=== PATIENT | male | born 1985 ===

== ENCOUNTER 2024-10-12 15:10 | Inpatient (IN) | payer MEDICAID, SELFPAY ==
[2024-10-12 15:30] VITALS: BP 128/78; PULSE 84; RESP 18; TEMP 36.9; O2SAT 99
[2024-10-12 16:01] VITALS: BMI 24.7
--- NOTE | 2024-10-12 16:01 | HO.PSYADMNOT ---
HPI Date of Service: 10/12/24 Chief Complaint: F25.0 Sources of Information: patient interviewed, chart reviewed and crisis/core team assessment reviewed HPI Subjective Notes: [place] Warning and Conditional Voluntary Healthcare Proxy: No Guardianship: No Medical Problems Affecting Mental Status: No Narrative: Per referral from [facility], patient is a 39 years old male with history of schizoaffective disorder, bipolar disorder presenting with a concerns for infection of a new tattoo. Patient was agitated, verbally aggressive with staff as well as physically aggressive staff requests restraints. Of Benadryl Haldol and Ativan was given. Patient reported that he has had increased paranoia and anxiety, disclose suicidal ideation but did not specify a plan I do not know do it but I will do it, difficult time finishing sentences, talking rapidly about numerous things. Met with patient at 16:10 on October 12. CC suicidal thoughts . Reports everything is spiral up. Reported that he only slept for 20 hours total in last 30 days, increased agitation. He just moved from [place] with plan to to go to [place] as he has couple of friends there. However he has not make it yet to [place]. He was thought by [place] to have his tattoo done from a famous placed in [place] that he knows. Traveled by bus. The tattoo area does not seems having infection signs. Denies SI/SIB/HI/AVH. History of suicidal thoughts. History of cutting last cut was in 2017. Denies suicide attempts history. Mood is I am stable now. I am at baseline . Denies any trauma history. He confirms that he have bipolar. Past Psychiatric History: History of inpatient level of care since 16 years old, on the average he admitted to [facility] once a year. Last admission was in December 2023 but do not remember for what reason or where he was admitted Currently has no psychiatric or therapist or PCP. No history of PHP. History of detox x2 not sure when he was admitted to detox. Medication trials: Depakote, Tegretol, Abilify, Geodon, defend benzos, BuSpar. Medical Evaluation Reviewed: Hospitalist Jt Pending [facility] Narrative: Childhood asthma Narrative: Denies surgical history Family History: Mom and dad still alive. No mental health runs in the family. Dad has history of abuse to benzo. He has 2 younger brothers. Social History: He is single, never , has no children. Lives in [place], recently wanted to move to [place]. He take the 1st from [place], stopped by [place] to get a tattoo done days ago. He has 2 years college. Currently receives SSI. He has money to pay for the hotel. Substance History: He used to abuse 2 amphetamine, cocaine, fentanyl but not currently, last use was 4 months ago. Denies marijuana use. He smoked 1.5 packs a day of cigarettes. Denies alcohol issues Trauma History: Denies Meds/Allergies Allergies Allergies Allergy/AdvReac Type Severity Reaction Status Date / Time bacitracin (From Neosporin Allergy Hives Verified 10/12/24 15:56 ([id number])) latex Allergy Hives Verified 10/12/24 15:56 neomycin (From Neosporin Allergy Hives Verified 10/12/24 15:56 ([id number])) Penicillins (PCN) Allergy Hives Verified 10/12/24 15:56 polymyxin B (From Neosporin Allergy Hives Verified 10/12/24 15:56 ([id number])) Mental Status Exam Mental Status Exam Narrative: Patient is alert and oriented; behavior is cooperative, friendly with mild to moderate anxiety; patient is not in distress; dressed in hospital attire with kempt hair and adequate hygiene; mood is described as stable at baseline and affect incongruent; eye contact appropriate; Speech is normal rate, volume and prosody and mild pressured; no psychomotor agitation/retardation present; thought process is organized and goal directed; Thought content is WNL, pertinent to relevant topics and without any delusional content, paranoid ideation or grandiosity; denies any SI/SIB/HI. Denies AH and there is no evidence of perceptual disturbance. Patient's insight and judgment poor. Assessment & Plan Assessment & Plan (1) Schizo-affective psychosis: Status: Acute Code(s): F25.9 - Schizoaffective disorder, unspecified Plan HPI: patient is a 39 years old male with history of schizoaffective disorder, bipolar disorder, polysubstance use disorder presenting with a concerns for infection of a new tattoo. Patient was agitated, verbally aggressive with staff as well as physically aggressive staff requests restraints. Of Benadryl Haldol and Ativan was given. Patient reported that he has had increased paranoia and anxiety, disclose suicidal ideation but did not specify a plan I do not know do it but I will do it, difficult time finishing sentences, talking rapidly about numerous things. CC suicidal thoughts . Reports everything is spiral up. Reported that he only slept for 20 hours total in last 30 days, increased agitation. He just moved from [place] with plan to to go to [place] as he has couple of friends there. However he has not make it yet to [place]. He was thought by [place] to have his tattoo done from a famous placed in [place] that he knows. Traveled by bus. The tattoo area does not seems having infection signs. Denies SI/SIB/HI/AVH. History of suicidal thoughts. History of cutting last cut was in 2018. Denies suicide attempts history. Mood is I am stable now. I am at baseline . Denies any trauma history. He confirms that he have bipolar Formulation/clinical reasoning: Suicidal thoughts, agitated, irritable, requests restrained in the ED. history of schizoaffective, reports he has been taking his psychiatric medication, reports no psychiatrist, therapist, PCP. Inconsistent with the report, now reports mood is calm and stable at baseline, poor judgment and insight. History of on Abilify Maintena. Need to confirm diagnosis of schizoaffective bipolar type, just bipolar disorder, polysubstance use disorder. Given the above information, patient could be benefit from restrictive environment, restart on medication, monitor for safety, and refer patient to outpatient psychiatric services for aftercare. Hospital course: 10/12: Patient agreed to start Abilify. Reports Abilify was not working well by his self and he is not taking with the Depakote for mood stabilizer before. However agreed to restart both of them for his mood. Explained the blood work needed during to get therapeutic dose. Depakote 500 once at bedtime tonight. If tolerate well, and increased up to 500 twice a day the next day Abilify 5 mg at bedtime for mood/psychosis. (history of Abilify Maintena). Currently he only wants p.o.. BuSpar 15 mg b.i.d. for anxiety. In the meantime we will started Seroquel 50 mg b.i.d. p.r.n. for severe agitation/or psychosis. Flofilipee wants today for congestion. Mucinex 600 b.i.d. for cough. He also has Robitussin b.i.d. p.r.n. for congestion/cough Plan Patient on 15 minute checks for safety. Admitted to M3. CV. Work with treatment team to do collateral and outpatient psychiatric services for aftercare. Contact the hospitalist regarding hospitalist consultation on admission: Pending Patient educated on: diagnosis, medication risk/benefits, substance abuse and therapeutic strategies Informed Consent: understands Reason for continued inpatient stay Substantial Risk for: med/psych decompensation Statement Statement: I have reviewed the history and physical and performed a pertinent examination on my patient. No changes have occurred unless specified. If the History and Physical was not performed prior to admission, the Hospitalist's service will be consulted for completing the admission physical. Time Spent With Patient Time: Total time managing care of this patient today ____ minutes.
[2024-10-12] MEDS: guaiFENesin 200 MG/10 ML 10 ML LIQUID PO (17:01)
--- NOTE | 2024-10-12 17:09 | PC.ADMIT ---
Addendum entered by Dereck Cooper RN 10/12/24 17:56: *Pt. compliant w/ medications at [facility] Original Note: Pt. is a non-toxic appearing 39yoM AOx4 who presents from [facility] ED to [facility] for inpatient psychiatric treatment secondary to SI w/ vague plan. Pt. signed in under CV. Pt. was restrained on 10/10 by [facility] ED, but has reportedly been in behavioral control since then. Pt. currently denies SI/HI/AVH. Does endorse anxiety and depression- states it is better today than it has been lately and overall he feels well . Pt. recently moved from [facility] and has no supports. Pt. has no PCP, therapist, pharmacy, or psychiatrist. Pt. indicates he has been on/off medication in the past. Recently using cocaine prior to admission. Denies ETOH usage. Current smoker. Pt. complaint w/ medications at [facility]. Pt. seen by provider. Placed on regular diet. Flonase brought to pharmacy.
[2024-10-12 19:05] VITALS: BP 120/77; PULSE 74; RESP 16; TEMP 36.3; O2SAT 99
[2024-10-12] MEDS: guaiFENesin LA 600 MG TAB.ER.12H PO (21:03)
[2024-10-13] MEDS: guaiFENesin 200 MG/10 ML 10 ML LIQUID PO ×2 (03:29→21:17)
[2024-10-13 07:00] VITALS: BMI 24.9
[2024-10-13 07:44] VITALS: BP 111/68; PULSE 75; RESP 20; TEMP 36.4; O2SAT 98
[2024-10-13] MEDS: guaiFENesin LA 600 MG TAB.ER.12H PO ×2 (08:24→21:18)
--- NOTE | 2024-10-13 08:33 | HO.PM.IMCN ---
History of Present Illness Data of Consult Service Date: 10/13/24 Primary Care Provider: Unknown Physician HPI Reason for consult: Medical H&P 39-year-old male who presented to [facility] with concerns over infection and a new tattoo that he received in his right lower leg. Patient has a past medical history of schizoaffective disorder and bipolar disorder, while in the ED he became verbally and physically aggressive requiring physical and chemical restraints. He demonstrated increased paranoia and anxiety, suicidal ideations and was subsequently sections for psychiatric evaluation. He is admitted here for further care and treatment. His EKG sinus rhythm, QTC of 380. CMP and CBC was within normal limits. His tattoo was evaluated and found not to be infected, he has no leukocytosis. On exam he denies any shortness of breath, dizziness, lightheadedness or any other concerning symptoms. He is concerned regarding two small pimples on his new tattoo. Pain in left upper gum line. Review of Systems Review of Systems: Denies any shortness of breath, chest pain, dizziness, lightheadedness, abdominal pain or discomfort, nausea vomiting or diarrhea. + pain in left side of mouth PMFSH Social History Household Members: None Housing: Homeless Do you presently have visiting nurse or other home services: No Patient Tobacco Use Status: Current everyday Tobacco user Tobacco use type: Cigarette Smoked in Last 30 Days: Yes Patient Interested in Nicotine Replacement: Yes Patient Given Instructions on How to Stop Smoking: Yes Date Education Initiated: 10/12/24 Second Hand Smoke Exposure: Yes Currently Displaying Signs/Symptoms of Drug Intoxication Withdrawal: No Have you been hit, kicked, punched, or otherwise hurt by someone within the past year? If so, by whom?: No Do you feel safe in your current relationship?: No Current Relationship Is there a partner from a previous relationship who is making you feel unsafe now?: No Are you made to feel afraid or neglected: No Advance Directives: No Advance Directives Information Provided: Yes Do you have thoughts of harming others: None Do you have a plan to hurt others: No Plan Recently lost weight without trying: No Eating poorly because of decreased appetite: No Nutrition Risks: No Nutritional Risk Poor oral hygiene: No service: No Sexual orientation: Straight/Heterosexual Meds Allergies Allergy/AdvReac Type Severity Reaction Status Date / Time bacitracin (From Neosporin Allergy Hives Verified 10/12/24 15:56 ([id number])) droperidol Allergy Difficulty Verified 10/13/24 12:42 Swallowing haloperidol Allergy Difficulty Verified 10/13/24 12:42 Swallowing latex Allergy Hives Verified 10/12/24 15:56 neomycin (From Neosporin Allergy Hives Verified 10/12/24 15:56 ([id number])) Penicillins (PCN) Allergy Hives Verified 10/12/24 15:56 polymyxin B (From Neosporin Allergy Hives Verified 10/12/24 15:56 ([id number])) Active Medications: Current Medications Acetaminophen (Acetaminophen 325 Mg Tablet) 650 mg PO Q6H PRN PRN Reason: Headache/Pain, Scale 1-10 Last Admin: 10/12/24 21:54 Dose: 650 mg Al Hydroxide/Mg Hydroxide (Magnesium Hydrox/Alum Hydrox 30 Ml Oral.Susp) 30 ml PO Q6H PRN PRN Reason: Heartburn/Nausea Aripiprazole (Aripiprazole 5 Mg Tablet) 5 mg PO BEDTIME [facility] Last Admin: 10/12/24 21:06 Dose: 5 mg Buspirone HCl (Buspirone Hcl 5 Mg Tablet) 15 mg PO BID [facility] Last Admin: 10/13/24 08:23 Dose: 15 mg Divalproex Sodium (Divalproex Sodium 500 Mg Tablet.Dr) 500 mg PO BEDTIME [facility] Last Admin: 10/12/24 21:03 Dose: 500 mg Fluticasone Propionate (Fluticasone Propionate Nasal 16 Gm Mag[place]ena) 1 spray NOSTRIL-B DAILY [facility] Last Admin: 10/13/24 08:24 Dose: 1 spray Guaifenesin (Guaifenesin 200 Mg/10 Ml 10 Ml Liquid) 10 ml PO Q4H PRN PRN Reason: Cough/congestion Last Admin: 10/13/24 03:29 Dose: 10 ml Guaifenesin (Guaifenesin La 600 Mg Tab.Er.12h) 600 mg PO BID [facility] Last Admin: 10/13/24 08:24 Dose: 600 mg Hydroxyzine HCl (Hydroxyzine Hcl 50 Mg Tablet) 50 mg PO Q6H PRN PRN Reason: mild anxiety Magnesium Hydroxide (Milk Of Magnesia 30 Ml Oral.Susp) 30 ml PO DAILY PRN PRN Reason: Constipation Nicotine (Nicotine 21 Mg Patch.Td24) 21 mg TRANSDERMA DAILY PRN PRN Reason: nicotine craving Nicotine Polacrilex (Nicotine Polacrilex 2 Mg Gum) 2 mg BUCCAL Q2H PRN PRN Reason: Nicotine Cravings Last Admin: 10/13/24 06:35 Dose: 2 mg Quetiapine Fumarate (Quetiapine Fumarate 50 Mg Tablet) 50 mg PO BID PRN PRN Reason: Agitation/psychosis Trazodone HCl (Trazodone Hcl 50 Mg Tablet) 50 mg PO BEDTIME MRX1 PRN PRN Reason: Insomnia Last Admin: 10/12/24 23:37 Dose: 50 mg Physical Exam Vital Signs and Narrative: Vital Signs: Last Vital Signs Temp 97.5 F 10/13/24 07:44 Pulse 75 10/13/24 07:44 Resp 20 10/13/24 07:44 BP 111/68 10/13/24 07:44 Pulse Ox 98 10/13/24 07:44 O2 Del Method Room Air 10/13/24 07:44 BMI result Body Mass Index 24.7 Alert and oriented X3, able to give good history. Neuro: CN II-X11 intact, no deficits, visual acuity intact EYES: PERRLA, EOM intact ENT: Hearing intact, lips moist, small canker sore left upper gumline. Cardiac: S1 S2 RRR, No ectopy Pulmonary: lungs clear to auscultation, No increased WOB. Abdominal: BS active in all 4 quadrants, no guarding or tenderness MSK: Strength 5/5 upper and lower extremities : Deferred Extremities: No edema in lower extremities Psych: mood stable, Quiet and cooperative. Skin: Warm and dry, Intact. Tattoo to right lower leg appears without any drainage redness or warmth. 2 small pustules noted. Results Labs 10/13/24 07:59 Assessment and Plan (1) Bipolar disorder: Status: Acute Plan 39-year-old male presented to [facility] with concerns of a infection and a new tattoo on his leg, he became verbal and physically abusive and required chemical and physical restraints, now admitted here for further care. Schizoaffective disorder/bipolar/aggressive behavior Treatment per psychiatric team New tattoo right lower extremity 2 small pustules noted, mupirocin ordered t.i.d. x5 days Also A and D ointment 3 times daily ordered secondary to allergy to Neosporin and bacitracin. Patient reports that this is what he uses. Thank you for allowing me to participate in the care of this patient. Signing off at this time. Please reconsult of any acute concerns or issues arise
[2024-10-13 08:38] LABS: Hemoglobin A1C 121.3536 umol/L; Total Hemoglobin (HGBA1C) 3642.4061 umol/L
--- NOTE | 2024-10-13 08:38 | HO.PSYCHPN ---
Subjective Subjective Date of Service: 10/13/24 Reason For Visit: F25.0 Subjective Notes: Conditional Voluntary Interim History: Active on unit. attending groups .medication compliant. Patient reports feeling tired today d/t not being able to sleep through the night. Patient reports hx of taking depakote and abilify being beneficial. Depakote increased to Depakote ER 1000mg PO bedtime; pt aware. denies SI/HI/VH/AH. Continue current tx plan. Medication Compliance: Yes Side effects from medications: No Attending Groups: Yes Mental Status Exam Mental Status Exam Narrative: Pt is alert and oriented; behavior is cooperative and calm; dressed in casual attire; mood is described as tired ; eye contact appropriate; Speech is normal rate, volume and not pressured; thought process is organized; Thought content is on tx; denies SI/HI/VH/AH. Diagnostics Vital Signs (24Hr): Vital Signs - 24 hr 10/12/24 15:30 10/12/24 19:05 10/13/24 07:44 Temperature 98.4 F 97.4 F 97.5 F Pulse Rate 84 74 75 Respiratory Rate 18 16 20 Blood Pressure 128/78 120/77 111/68 Pulse Oximetry 99 99 98 Oxygen Delivery Method Room Air Room Air Room Air BMI result Body Mass Index 24.7 Labs 10/13/24 07:59 Labs: Laboratory Results - last 48 hr 10/13/24 07:59 Estimat Average Glucose 103 Hemoglobin A1c % 5.2 Medications Medications Current Medications Acetaminophen (Acetaminophen 325 Mg Tablet) 650 mg PO Q6H PRN PRN Reason: Headache/Pain, Scale 1-10 Last Admin: 10/12/24 21:54 Dose: 650 mg Al Hydroxide/Mg Hydroxide (Magnesium Hydrox/Alum Hydrox 30 Ml Oral.Susp) 30 ml PO Q6H PRN PRN Reason: Heartburn/Nausea Aripiprazole (Aripiprazole 5 Mg Tablet) 5 mg PO BEDTIME [facility] Last Admin: 10/12/24 21:06 Dose: 5 mg Buspirone HCl (Buspirone Hcl 5 Mg Tablet) 15 mg PO BID [facility] Last Admin: 10/13/24 08:23 Dose: 15 mg Divalproex Sodium (Divalproex Sodium 500 Mg Tablet.Dr) 500 mg PO BEDTIME [facility] Last Admin: 10/12/24 21:03 Dose: 500 mg Fluticasone Propionate (Fluticasone Propionate Nasal 16 Gm [place]) 1 spray NOSTRIL-B DAILY [facility] Last Admin: 10/13/24 08:24 Dose: 1 spray Guaifenesin (Guaifenesin 200 Mg/10 Ml 10 Ml Liquid) 10 ml PO Q4H PRN PRN Reason: Cough/congestion Last Admin: 10/13/24 03:29 Dose: 10 ml Guaifenesin (Guaifenesin La 600 Mg Tab.Er.12h) 600 mg PO BID [facility] Last Admin: 10/13/24 08:24 Dose: 600 mg Hydroxyzine HCl (Hydroxyzine Hcl 50 Mg Tablet) 50 mg PO Q6H PRN PRN Reason: mild anxiety Magnesium Hydroxide (Milk Of Magnesia 30 Ml Oral.Susp) 30 ml PO DAILY PRN PRN Reason: Constipation Nicotine (Nicotine 21 Mg Patch.Td24) 21 mg TRANSDERMA DAILY PRN PRN Reason: nicotine craving Nicotine Polacrilex (Nicotine Polacrilex 2 Mg Gum) 2 mg BUCCAL Q2H PRN PRN Reason: Nicotine Cravings Last Admin: 10/13/24 08:37 Dose: 2 mg Quetiapine Fumarate (Quetiapine Fumarate 50 Mg Tablet) 50 mg PO BID PRN PRN Reason: Agitation/psychosis Trazodone HCl (Trazodone Hcl 50 Mg Tablet) 50 mg PO BEDTIME MRX1 PRN PRN Reason: Insomnia Last Admin: 10/12/24 23:37 Dose: 50 mg Allergies Allergies Allergy/AdvReac Type Severity Reaction Status Date / Time bacitracin (From Neosporin Allergy Hives Verified 10/12/24 15:56 ([id number])) latex Allergy Hives Verified 10/12/24 15:56 neomycin (From Neosporin Allergy Hives Verified 10/12/24 15:56 ([id number])) Penicillins (PCN) Allergy Hives Verified 10/12/24 15:56 polymyxin B (From Neosporin Allergy Hives Verified 10/12/24 15:56 ([id number])) Assessment & Plan Assessment & Plan (1) Schizo-affective psychosis: Status: Acute Code(s): F25.9 - Schizoaffective disorder, unspecified Plan patient is a 39 years old male with history of schizoaffective disorder, bipolar disorder, polysubstance use disorder presenting with a concerns for infection of a new tattoo. Patient was agitated, verbally aggressive with staff as well as physically aggressive staff requests restraints. Of Benadryl Haldol and Ativan was given. Patient reported that he has had increased paranoia and anxiety, disclose suicidal ideation but did not specify a plan I do not know do it but I will do it, difficult time finishing sentences, talking rapidly about numerous things. CC suicidal thoughts . Reports everything is spiral up. Reported that he only slept for 20 hours total in last 30 days, increased agitation. He just moved from [place] with plan to to go to [place] as he has couple of friends there. However he has not make it yet to [place]. He was thought by [place] to have his tattoo done from a famous placed in [place] that he knows. Traveled by bus. The tattoo area does not seems having infection signs. Denies SI/SIB/HI/AVH. History of suicidal thoughts. History of cutting last cut was in 2018. Denies suicide attempts history. Mood is I am stable now. I am at baseline . Denies any trauma history. He confirms that he have bipolar Formulation/clinical reasoning: Suicidal thoughts, agitated, irritable, requests restrained in the ED. history of schizoaffective, reports he has been taking his psychiatric medication, reports no psychiatrist, therapist, PCP. Inconsistent with the report, now reports mood is calm and stable at baseline, poor judgment and insight. History of on Abilify Maintena. Need to confirm diagnosis of schizoaffective bipolar type, just bipolar disorder, polysubstance use disorder. Given the above information, patient could be benefit from restrictive environment, restart on medication, monitor for safety, and refer patient to outpatient psychiatric services for aftercare. Plan Patient on 15 minute checks for safety. Admitted to M3. CV. Work with treatment team to do collateral and outpatient psychiatric services for aftercare. Contact the hospitalist regarding hospitalist consultation on admission: Pending 10/12: Patient agreed to start Abilify. Reports Abilify was not working well by his self and he is not taking with the Depakote for mood stabilizer before. However agreed to restart both of them for his mood. Explained the blood work needed during to get therapeutic dose. Depakote 500 once at bedtime tonight. If tolerate well, and increased up to 500 twice a day the next day Abilify 5 mg at bedtime for mood/psychosis. (history of Abilijj Carrollaustynlow). Currently he only wants p.o.. BuSpar 15 mg b.i.d. for anxiety. In the meantime we will started Seroquel 50 mg b.i.d. p.r.n. for severe agitation/or psychosis. Flonase wants today for congestion. Mucinex 600 b.i.d. for cough. He also has Robitussin b.i.d. p.r.n. for congestion/cough 10/13: Active on unit. attending groups .medication compliant. Patient reports feeling tired today d/t not being able to sleep through the night. Patient reports hx of taking depakote and abilify being beneficial. Depakote increased to Depakote ER 1000mg PO bedtime; pt aware. denies SI/HI/VH/AH. Continue current tx plan. Patient educated on: diagnosis and medication risk/benefits Reason for continued inpatient stay Substantial Risk for: med/psych decompensation Time Spent With Patient Time: Total time managing care of this patient today _20___ minutes.
[2024-10-13 08:51] LABS: Alanine Aminotransferase 30 U/L (0-40); Albumin Level 4.2 g/dL (3.5-5.0); Alkaline Phosphatase 73 U/L (39-117); Anion Gap 9 (12-20); Aspartate Amino Transferase 60 U/L (5-37); Blood Urea Nitrogen 11 mg/dL (9-16); Calcium 8.9 mg/dL (8.4-10.2); Carbon Dioxide 28 mmol/L (22-29); Chloride 104 mmol/L (96-108); Cholesterol 116 mg/dL (<200); Creatinine Clr Calc Pharmacy 119.0; Estimated Glomerular Filt Rate > 60; HDL Cholesterol 40 mg/dL (>40); Potassium 4.1 mmol/L (3.3-5.1); Sodium 137 mmol/L (135-145); Total Protein 6.6 g/dL (6.5-8.0); Triglycerides 158 mg/dL (<150)
[2024-10-13 08:59] LABS: Free T4 (Free Thyroxine) 1.16 ng/dL (0.71-1.85); Thyroid Stimulating Hormone 0.80 uIU/mL (0.32-4.0)
[2024-10-13] MEDS: A and D Ointment 56.7 GM TUBE 1 APPL TOPICAL ×2 (14:04→19:43)
[2024-10-13] MEDS: Magnesium Hydrox/Alum Hydrox 30 ML ORAL.SUSP PO ×2 (16:24→22:23)
[2024-10-13 20:00] VITALS: BP 129/83; PULSE 72; RESP 16; TEMP 36.7; O2SAT 100
[2024-10-14 07:43] VITALS: BP 112/74; PULSE 83; RESP 16; TEMP 36.4; O2SAT 97
[2024-10-14] MEDS: A and D Ointment 56.7 GM TUBE 1 APPL TOPICAL ×3 (08:19→20:00)
[2024-10-14] MEDS: guaiFENesin LA 600 MG TAB.ER.12H PO (08:20)
--- NOTE | 2024-10-14 10:27 | HO.PSYCHPN ---
Subjective Subjective Date of Service: 10/14/24 Reason For Visit: F25.0 Subjective Notes: Conditional Voluntary Interim History: Active on unit. attending groups. Patient reports he is starting to feel more balanced today; pt stated, I feel like I'm starting to feel more like myself . Pt is requesting to DC Buspar; believes it is making him tired. DC Buspar. Valproic acid level to be drawn on 10/16/24. denies SI/HI/VH/AH. Continue current tx plan. Medication Compliance: Yes Side effects from medications: No Attending Groups: Yes Mental Status Exam Mental Status Exam Narrative: Pt is alert and oriented; behavior is cooperative and calm; dressed in casual attire; mood is described as improving ; eye contact appropriate; Speech is normal rate, volume and not pressured; thought process is organized; Thought content is on tx; denies SI/HI/VH/AH. Diagnostics Vital Signs (24Hr): Vital Signs - 24 hr 10/13/24 20:00 10/14/24 07:43 Temperature 98.1 F 97.5 F Pulse Rate 72 83 Respiratory Rate 16 16 Blood Pressure 129/83 112/74 Pulse Oximetry 100 97 Oxygen Delivery Method Room Air Room Air BMI result Body Mass Index 24.9 Labs 10/13/24 07:59 Labs: Laboratory Results - last 48 hr 10/13/24 07:59 Sodium 137 Potassium 4.1 Chloride 104 Carbon Dioxide 28 Anion Gap 9 L BUN 11 Creatinine 0.87 Estim Creat Clear Calc 119.0 Estimated GFR > 60 Random Glucose 92 Estimat Average Glucose 103 Hemoglobin A1c % 5.2 Calcium 8.9 Total Bilirubin 0.3 AST 60 H ALT 30 Alkaline Phosphatase 73 Total Protein 6.6 Albumin 4.2 Triglycerides 158 H Cholesterol 116 LDL Cholesterol, Calc 45 HDL Cholesterol 40 L TSH 0.80 Free T4 1.16 Medications Medications Current Medications Acetaminophen (Acetaminophen 325 Mg Tablet) 650 mg PO Q6H PRN PRN Reason: Headache/Pain, Scale 1-10 Last Admin: 10/13/24 19:43 Dose: 650 mg Al Hydroxide/Mg Hydroxide (Magnesium Hydrox/Alum Hydrox 30 Ml Oral.Susp) 30 ml PO Q6H PRN PRN Reason: Heartburn/Nausea Last Admin: 10/13/24 22:23 Dose: 30 ml Aripiprazole (Aripiprazole 5 Mg Tablet) 5 mg PO BEDTIME TICO Last Admin: 10/13/24 21:18 Dose: 5 mg Buspirone HCl (Buspirone Hcl 5 Mg Tablet) 15 mg PO BID [facility] Last Admin: 10/14/24 08:20 Dose: 15 mg Divalproex Sodium (Divalproex Sodium Er 500 Mg Tab.Er.24h) 1,000 mg PO BEDTIME [facility] Last Admin: 10/13/24 21:18 Dose: 1,000 mg Fluticasone Propionate (Fluticasone Propionate Nasal 16 Gm [place]) 1 spray NOSTRIL-B DAILY [facility] Last Admin: 10/14/24 08:19 Dose: 1 spray Guaifenesin (Guaifenesin 200 Mg/10 Ml 10 Ml Liquid) 10 ml PO Q4H PRN PRN Reason: Cough/congestion Last Admin: 10/13/24 21:17 Dose: 10 ml Guaifenesin (Guaifenesin [place] 600 Mg Tab.Er.12h) 600 mg PO BID [facility] Last Admin: 10/14/24 08:20 Dose: 600 mg Hydroxyzine HCl (Hydroxyzine Hcl 50 Mg Tablet) 50 mg PO Q6H PRN PRN Reason: mild anxiety Ibuprofen (Ibuprofen 600 Mg Tablet) 600 mg PO Q8H PRN PRN Reason: Pain, Moderate(Pain Scale 4-6) Last Admin: 10/13/24 16:50 Dose: 600 mg Magnesium Hydroxide (Milk Of Magnesia 30 Ml Oral.Susp) 30 ml PO DAILY PRN PRN Reason: Constipation Mupirocin (Mupirocin 2 % Oint 22 Gm Tube) 1 appl TOPICAL TID [facility]; Protocol Stop: 10/18/24 14:59 Last Admin: 10/14/24 08:19 Dose: 1 appl Nicotine (Nicotine 21 Mg Patch.Td24) 21 mg TRANSDERMA DAILY PRN PRN Reason: nicotine craving Nicotine Polacrilex (Nicotine Polacrilex 2 Mg Gum) 2 mg BUCCAL Q2H PRN PRN Reason: Nicotine Cravings Last Admin: 10/14/24 05:43 Dose: 2 mg Quetiapine Fumarate (Quetiapine Fumarate 50 Mg Tablet) 50 mg PO BID PRN PRN Reason: Agitation/psychosis Trazodone HCl (Trazodone Hcl 50 Mg Tablet) 50 mg PO BEDTIME MRX1 PRN PRN Reason: Insomnia Last Admin: 10/12/24 23:37 Dose: 50 mg Vitamin A/Vitamin D (A And D Ointment 56.7 Gm Tube) 1 appl TOPICAL TID TICO; Protocol Last Admin: 10/14/24 08:19 Dose: 1 appl Allergies Allergies Allergy/AdvReac Type Severity Reaction Status Date / Time bacitracin (From Neosporin Allergy Hives Verified 10/12/24 15:56 ([id number])) droperidol Allergy Difficulty Verified 10/13/24 12:42 Swallowing haloperidol Allergy Difficulty Verified 10/13/24 12:42 Swallowing latex Allergy Hives Verified 10/12/24 15:56 neomycin (From Neosporin Allergy Hives Verified 10/12/24 15:56 ([id number])) Penicillins (PCN) Allergy Hives Verified 10/12/24 15:56 polymyxin B (From Neosporin Allergy Hives Verified 10/12/24 15:56 ([id number])) Assessment & Plan Assessment & Plan (1) Bipolar disorder: Status: Acute Code(s): F31.9 - Bipolar disorder, unspecified Plan Plan Patient on 15 minute checks for safety. Admitted to . CV. Work with treatment team to do collateral and outpatient psychiatric services for aftercare. Contact the hospitalist regarding hospitalist consultation on admission: Pending 10/12: Patient agreed to start Abilify. Reports Abilify was not working well by his self and he is not taking with the Depakote for mood stabilizer before. However agreed to restart both of them for his mood. Explained the blood work needed during to get therapeutic dose. Depakote 500 once at bedtime tonight. If tolerate well, and increased up to 500 twice a day the next day Abilify 5 mg at bedtime for mood/psychosis. (history of Abilify Maintena). Currently he only wants p.o.. BuSpar 15 mg b.i.d. for anxiety. In the meantime we will started Seroquel 50 mg b.i.d. p.r.n. for severe agitation/or psychosis. Flonase wants today for congestion. Mucinex 600 b.i.d. for cough. He also has Robitussin b.i.d. p.r.n. for congestion/cough 10/13: Active on unit. attending groups .medication compliant. Patient reports feeling tired today d/t not being able to sleep through the night. Patient reports hx of taking depakote and abilify being beneficial. Depakote increased to Depakote ER 1000mg PO bedtime; pt aware. denies SI/HI/VH/AH. Continue current tx plan. 10/14: Active on unit. attending groups. Patient reports he is starting to feel more balanced today; pt stated, I feel like I'm starting to feel more like myself . Pt is requesting to DC Buspar; believes it is making him tired. DC Buspar. Valproic acid level to be drawn on 10/16/24. denies SI/HI/VH/AH. Continue current tx plan. Patient educated on: diagnosis and medication risk/benefits Reason for continued inpatient stay Substantial Risk for: med/psych decompensation Time Spent With Patient Time: Total time managing care of this patient today _20___ minutes.
--- NOTE | 2024-10-14 15:22 | PM.EVENT ---
Event Note Date of Service: 10/14/24 Event Note: Patient now has 2 small open areas with surrounding redness to the right lower leg tattoo area. We will start doxycycline 100 b.i.d. for 7 days, patient has mupirocin 2 area. No swelling, no surrounding redness or warmth noted to leg. Time Spent With Patient Time: Total time managing care of this patient today ____ minutes.
[2024-10-14 20:00] VITALS: BP 128/80; PULSE 67; RESP 16; TEMP 36.4; O2SAT 100
[2024-10-15] MEDS: A and D Ointment 56.7 GM TUBE 1 APPL TOPICAL ×3 (06:01→20:00)
--- NOTE | 2024-10-15 06:08 | PC.NURSE ---
Josias requested ointment for his tattoo early as he was awake and wanted to protect the area on his leg.
[2024-10-15 07:20] VITALS: BP 111/71; PULSE 75; RESP 20; TEMP 36.4; O2SAT 99
--- NOTE | 2024-10-15 10:11 | HO.PSYCHPN ---
Subjective Subjective Date of Service: 10/15/24 Reason For Visit: F25.0 Subjective Notes: Conditional Voluntary Interim History: Patient was seen and discussed in rounds today. Records and plans were reviewed. He is eating and sleeping adequately. He was seen by the hospitalist and no antibiotic was prescribed. No behavioral issues. No SI. He is requesting to increase his Abilify to 10 mg as previously discussed with his provider which I did so. No complaints or side effects. No other changes Review of Systems Review of Systems Yes all other systems are reviewed and are negative Mental Status Exam Mental Status Exam Narrative: In today's visit he is alert, oriented and pleasant. Normal speech. Good eye contact. Affect is appropriate and varied. No acute signs of psychosis. No delusions. No AVH. Cognitively intact. Judgment is intact. Diagnostics Vital Signs (24Hr): Vital Signs - 24 hr 10/14/24 20:00 10/15/24 07:20 Temperature 97.6 F 97.6 F Pulse Rate 67 75 Respiratory Rate 16 20 Blood Pressure 128/80 111/71 Pulse Oximetry 100 99 Oxygen Delivery Method Room Air Room Air BMI result Body Mass Index 24.9 Labs 10/13/24 07:59 Medications Medications Current Medications Acetaminophen (Acetaminophen 325 Mg Tablet) 650 mg PO Q6H PRN PRN Reason: Headache/Pain, Scale 1-10 Last Admin: 10/14/24 18:40 Dose: 650 mg Al Hydroxide/Mg Hydroxide (Magnesium Hydrox/Alum Hydrox 30 Ml Oral.Susp) 30 ml PO Q6H PRN PRN Reason: Heartburn/Nausea Last Admin: 10/13/24 22:23 Dose: 30 ml Aripiprazole (Aripiprazole 10 Mg Tablet) 10 mg PO BEDTIME TICO Divalproex Sodium (Divalproex Sodium Er 500 Mg Tab.Er.24h) 1,000 mg PO BEDTIME TICO Last Admin: 10/14/24 21:05 Dose: 1,000 mg Doxycycline Monohydrate (Doxycycline Monohydrate 100 Mg Capsule) 100 mg PO Q12H TICO Stop: 10/21/24 21:01 Last Admin: 10/15/24 08:55 Dose: 100 mg Fluticasone Propionate (Fluticasone Propionate Nasal 16 Gm [place]) 1 spray NOSTRIL-B DAILY TICO Last Admin: 10/15/24 08:56 Dose: 1 spray Guaifenesin (Guaifenesin 200 Mg/10 Ml 10 Ml Liquid) 10 ml PO Q4H PRN PRN Reason: Cough/congestion Last Admin: 10/13/24 21:17 Dose: 10 ml Hydroxyzine HCl (Hydroxyzine Hcl 50 Mg Tablet) 50 mg PO Q6H PRN PRN Reason: mild anxiety Ibuprofen (Ibuprofen 600 Mg Tablet) 600 mg PO Q8H PRN PRN Reason: Pain, Moderate(Pain Scale 4-6) Last Admin: 10/13/24 16:50 Dose: 600 mg Magnesium Hydroxide (Milk Of Magnesia 30 Ml Oral.Susp) 30 ml PO DAILY PRN PRN Reason: Constipation Mupirocin (Mupirocin 2 % Oint 22 Gm Tube) 1 appl TOPICAL TID TICO; Protocol Stop: 10/18/24 14:59 Last Admin: 10/15/24 06:01 Dose: 1 appl Nicotine (Nicotine 21 Mg Patch.Td24) 21 mg TRANSDERMA DAILY PRN PRN Reason: nicotine craving Nicotine Polacrilex (Nicotine Polacrilex 2 Mg Gum) 2 mg BUCCAL Q2H PRN PRN Reason: Nicotine Cravings Last Admin: 10/15/24 08:57 Dose: 2 mg Quetiapine Fumarate (Quetiapine Fumarate 50 Mg Tablet) 50 mg PO BID PRN PRN Reason: Agitation/psychosis Trazodone HCl (Trazodone Hcl 50 Mg Tablet) 50 mg PO BEDTIME MRX1 PRN PRN Reason: Insomnia Last Admin: 10/12/24 23:37 Dose: 50 mg Vitamin A/Vitamin D (A And D Ointment 56.7 Gm Tube) 1 appl TOPICAL TID TICO; Protocol Last Admin: 10/15/24 06:01 Dose: 1 appl Allergies Allergies Allergy/AdvReac Type Severity Reaction Status Date / Time bacitracin (From Neosporin Allergy Hives Verified 10/12/24 15:56 ([id number])) droperidol Allergy Difficulty Verified 10/13/24 12:42 Swallowing haloperidol Allergy Difficulty Verified 10/13/24 12:42 Swallowing lactose Allergy Unknown Verified 10/14/24 12:15 latex Allergy Hives Verified 10/12/24 15:56 neomycin (From Neosporin Allergy Hives Verified 10/12/24 15:56 ([id number])) Penicillins (PCN) Allergy Hives Verified 10/12/24 15:56 polymyxin B (From Neosporin Allergy Hives Verified 10/12/24 15:56 ([id number])) Assessment & Plan Assessment & Plan (1) Bipolar disorder: Status: Acute Code(s): F31.9 - Bipolar disorder, unspecified Plan Plan Patient on 15 minute checks for safety. Admitted to [facility]. CV. Work with treatment team to do collateral and outpatient psychiatric services for aftercare. Contact the hospitalist regarding hospitalist consultation on admission: Pending 10/12: Patient agreed to start Abilify. Reports Abilify was not working well by his self and he is not taking with the Depakote for mood stabilizer before. However agreed to restart both of them for his mood. Explained the blood work needed during to get therapeutic dose. Depakote 500 once at bedtime tonight. If tolerate well, and increased up to 500 twice a day the next day Abilify 5 mg at bedtime for mood/psychosis. (history of Abiliastermya [place]). Currently he only wants p.o.. BuSpar 15 mg b.i.d. for anxiety. In the meantime we will started Seroquel 50 mg b.i.d. p.r.n. for severe agitation/or psychosis. Flonase wants today for congestion. Mucinex 600 b.i.d. for cough. He also has Robitussin b.i.d. p.r.n. for congestion/cough 10/13: Active on unit. attending groups .medication compliant. Patient reports feeling tired today d/t not being able to sleep through the night. Patient reports hx of taking depakote and abilify being beneficial. Depakote increased to Depakote ER 1000mg PO bedtime; pt aware. denies SI/HI/VH/AH. Continue current tx plan. 10/14: Active on unit. attending groups. Patient reports he is starting to feel more balanced today; pt stated, I feel like I'm starting to feel more like myself . Pt is requesting to DC Buspar; believes it is making him tired. DC Buspar. Valproic acid level to be drawn on 10/16/24. denies SI/HI/VH/AH. Continue current tx plan. 10/15: Continue current regimen and plans Patient educated on: medication risk/benefits Reason for continued inpatient stay Substantial Risk for: med/psych decompensation Time Spent With Patient Time: Total time managing care of this patient today ____ minutes.
[2024-10-15] MEDS: Magnesium Hydrox/Alum Hydrox 30 ML ORAL.SUSP PO (11:40)
[2024-10-15] MEDS: guaiFENesin 200 MG/10 ML 10 ML LIQUID PO (16:24)
[2024-10-15 20:00] VITALS: BP 130/81; PULSE 71; RESP 16; TEMP 36.4; O2SAT 99
[2024-10-16] MEDS: guaiFENesin 200 MG/10 ML 10 ML LIQUID PO ×4 (03:52→20:21)
--- NOTE | 2024-10-16 03:58 | PC.NURSE ---
Josisa reported some nasal congestion and requested some Robitussen.
[2024-10-16] MEDS: A and D Ointment 56.7 GM TUBE 1 APPL TOPICAL ×2 (07:10→14:37)
--- NOTE | 2024-10-16 07:13 | PC.NURSE ---
Josias showered early this morning and requested his ointment for his legs.
[2024-10-16 07:20] VITALS: BP 107/75; PULSE 72; RESP 16; TEMP 36.3; O2SAT 99
[2024-10-16] MEDS: Nicotine 21 MG PATCH.TD24 TRANSDERMA (07:38)
[2024-10-16 08:03] LABS: Ammonia 33 umol/L (13-55)
[2024-10-16 08:11] LABS: Alanine Aminotransferase 25 U/L (0-40); Albumin Level 4.4 g/dL (3.5-5.0); Alkaline Phosphatase 76 U/L (39-117); Aspartate Amino Transferase 29 U/L (5-37); Total Protein 6.9 g/dL (6.5-8.0)
--- NOTE | 2024-10-16 09:07 | P.PNPSI_ITS ---
Subjective Subjective Date of Service: 10/16/24 Reason For Visit: F25.0 Subjective Notes: Conditional Voluntary Interim History: Patient was seen and discussed in rounds today. Records and plans were reviewed. He states that he is doing well and does not endorse any anxiety or depression. Mood is slightly elevated. The increase of Abilify has been helpful. He states that he slept a lot better. No SI. No AVH. Using all his PRNs. Requested to go on a nicotine patch which I ordered. No other changes were made Review of Systems Review of Systems Yes all other systems are reviewed and are negative Mental Status Exam Mental Status Exam Narrative: In today's visit he is alert, oriented and pleasant. Normal speech. Good eye contact. Affect is appropriate and varied. No acute signs of psychosis. No delusions. No SI. No AVH. Cognitively intact. Judgment is intact. Diagnostics Vital Signs (24Hr): Vital Signs - 24 hr 10/15/24 20:00 10/16/24 07:20 Temperature 97.6 F 97.4 F Pulse Rate 71 72 Respiratory Rate 16 16 Blood Pressure 130/81 107/75 Pulse Oximetry 99 99 Oxygen Delivery Method Room Air Room Air BMI result Body Mass Index 24.9 Labs 10/13/24 07:59 Labs: Laboratory Results - last 48 hr 10/16/24 07:25 Total Bilirubin 0.6 Direct Bilirubin 0.2 AST 29 ALT 25 Alkaline Phosphatase 76 Ammonia 33 Total Protein 6.9 Albumin 4.4 Valproic Acid 31.3 L Medications Medications Current Medications Acetaminophen (Acetaminophen 325 Mg Tablet) 650 mg PO Q6H PRN PRN Reason: Headache/Pain, Scale 1-10 Last Admin: 10/16/24 04:20 Dose: 650 mg Al Hydroxide/Mg Hydroxide (Magnesium Hydrox/Alum Hydrox 30 Ml Oral.Susp) 30 ml PO Q6H PRN PRN Reason: Heartburn/Nausea Last Admin: 10/15/24 11:40 Dose: 30 ml Aripiprazole (Aripiprazole 10 Mg Tablet) 10 mg PO BEDTIME TICO Last Admin: 10/15/24 20:00 Dose: 10 mg Divalproex Sodium (Divalproex Sodium Er 500 Mg Tab.Er.24h) 1,000 mg PO BEDTIME TICO Last Admin: 10/15/24 20:00 Dose: 1,000 mg Doxycycline Monohydrate (Doxycycline Monohydrate 100 Mg Capsule) 100 mg PO Q12H TICO Stop: 10/21/24 21:01 Last Admin: 10/16/24 08:09 Dose: 100 mg Fluticasone Propionate (Fluticasone Propionate Nasal 16 Gm [place]) 1 spray NOSTRIL-B DAILY TICO Last Admin: 10/16/24 08:09 Dose: 1 spray Guaifenesin (Guaifenesin 200 Mg/10 Ml 10 Ml Liquid) 10 ml PO Q4H PRN PRN Reason: Cough/congestion Last Admin: 10/16/24 08:09 Dose: 10 ml Hydroxyzine HCl (Hydroxyzine Hcl 50 Mg Tablet) 50 mg PO Q6H PRN PRN Reason: mild anxiety Ibuprofen (Ibuprofen 600 Mg Tablet) 600 mg PO Q8H PRN PRN Reason: Pain, Moderate(Pain Scale 4-6) Last Admin: 10/13/24 16:50 Dose: 600 mg Magnesium Hydroxide (Milk Of Magnesia 30 Ml Oral.Susp) 30 ml PO DAILY PRN PRN Reason: Constipation Mupirocin (Mupirocin 2 % Oint 22 Gm Tube) 1 appl TOPICAL TID TICO; Protocol Stop: 10/18/24 14:59 Last Admin: 10/16/24 07:10 Dose: 1 appl Nicotine (Nicotine 21 Mg Patch.Td24) 21 mg TRANSDERMA DAILY PRN PRN Reason: nicotine craving Nicotine Polacrilex (Nicotine Polacrilex 2 Mg Gum) 2 mg BUCCAL Q2H PRN PRN Reason: Nicotine Cravings Last Admin: 10/16/24 07:10 Dose: 2 mg Quetiapine Fumarate (Quetiapine Fumarate 50 Mg Tablet) 50 mg PO BID PRN PRN Reason: Agitation/psychosis Trazodone HCl (Trazodone Hcl 50 Mg Tablet) 50 mg PO BEDTIME MRX1 PRN PRN Reason: Insomnia Last Admin: 10/15/24 21:57 Dose: 50 mg Vitamin A/Vitamin D (A And D Ointment 56.7 Gm Tube) 1 appl TOPICAL TID TICO; Protocol Last Admin: 10/16/24 07:10 Dose: 1 appl Allergies Allergies Allergy/AdvReac Type Severity Reaction Status Date / Time bacitracin (From Neosporin Allergy Hives Verified 10/12/24 15:56 ([id number])) droperidol Allergy Difficulty Verified 10/13/24 12:42 Swallowing haloperidol Allergy Difficulty Verified 10/13/24 12:42 Swallowing lactose Allergy Unknown Verified 10/14/24 12:15 latex Allergy Hives Verified 10/12/24 15:56 neomycin (From Neosporin Allergy Hives Verified 10/12/24 15:56 ([id number])) Penicillins (PCN) Allergy Hives Verified 10/12/24 15:56 polymyxin B (From Neosporin Allergy Hives Verified 10/12/24 15:56 ([id number])) Assessment & Plan Assessment & Plan (1) Bipolar disorder: Status: Acute Code(s): F31.9 - Bipolar disorder, unspecified Plan Plan Patient on 15 minute checks for safety. Admitted to [facility]. CV. Work with treatment team to do collateral and outpatient psychiatric services for aftercare. Contact the hospitalist regarding hospitalist consultation on admission: Pending 10/12: Patient agreed to start Abilify. Reports Abilify was not working well by his self and he is not taking with the Depakote for mood stabilizer before. However agreed to restart both of them for his mood. Explained the blood work needed during to get therapeutic dose. Depakote 500 once at bedtime tonight. If tolerate well, and increased up to 500 twice a day the next day Abilify 5 mg at bedtime for mood/psychosis. (history of Abilify Maintena). Currently he only wants p.o.. BuSpar 15 mg b.i.d. for anxiety. In the meantime we will started Seroquel 50 mg b.i.d. p.r.n. for severe agitation/or psychosis. Flonase wants today for congestion. Mucinex 600 b.i.d. for cough. He also has Robitussin b.i.d. p.r.n. for congestion/cough 10/13: Active on unit. attending groups .medication compliant. Patient reports feeling tired today d/t not being able to sleep through the night. Patient reports hx of taking depakote and abilify being beneficial. Depakote increased to Depakote ER 1000mg PO bedtime; pt aware. denies SI/HI/VH/AH. Continue current tx plan. 10/14: Active on unit. attending groups. Patient reports he is starting to feel more balanced today; pt stated, I feel like I'm starting to feel more like myself . Pt is requesting to DC Buspar; believes it is making him tired. DC Buspar. Valproic acid level to be drawn on 10/16/24. denies SI/HI/VH/AH. Continue current tx plan. 10/15: Continue current regimen and plans 10/16: Continue current plans and regimen. Nicotine patch 21 mg ordered Patient educated on: medication risk/benefits Reason for continued inpatient stay Substantial Risk for: med/psych decompensation Time Spent With Patient Time: Total time managing care of this patient today ____ minutes.
--- NOTE | 2024-10-16 09:49 | PC.NURSE ---
VPA level 31.3, Dr. Castillo notified.
[2024-10-16 20:00] VITALS: BP 123/82; PULSE 87; RESP 16; TEMP 36.6; O2SAT 98
[2024-10-17 07:20] VITALS: BP 125/79; PULSE 80; RESP 16; TEMP 36.7; O2SAT 98
[2024-10-17] MEDS: guaiFENesin 200 MG/10 ML 10 ML LIQUID PO ×4 (07:47→21:44)
[2024-10-17] MEDS: A and D Ointment 56.7 GM TUBE 1 APPL TOPICAL ×3 (08:23→20:59)
--- NOTE | 2024-10-17 09:05 | HO.PSYCHPN ---
Subjective Subjective Date of Service: 10/17/24 Reason For Visit: F25.0 Subjective Notes: Conditional Voluntary Interim History: Active on unit. social with peers. attending groups. medication compliant. Patient reports feeling better ; pt stated, I feel like I'm starting to get to my baseline . denies SI/HI/AH/VH. He reports sleeping well. Valproic acid level to be drawn on 10/19/24; pt aware. Continue current tx plan. Medication Compliance: Yes Side effects from medications: No Attending Groups: Yes Mental Status Exam Mental Status Exam Narrative: Pt is alert and oriented; behavior is cooperative and calm; dressed in casual attire; mood is described as getting better ; eye contact appropriate; Speech is normal rate, volume and not pressured; thought process is organized; Thought content is on tx; denies SI/HI/VH/AH. Diagnostics Vital Signs (24Hr): Vital Signs - 24 hr 10/16/24 20:00 10/17/24 07:20 Temperature 97.8 F 98.1 F Pulse Rate 87 80 Respiratory Rate 16 16 Blood Pressure 123/82 125/79 Pulse Oximetry 98 98 Oxygen Delivery Method Room Air Room Air BMI result Body Mass Index 24.9 Labs 10/13/24 07:59 Labs: Laboratory Results - last 48 hr 10/16/24 07:25 Total Bilirubin 0.6 Direct Bilirubin 0.2 AST 29 ALT 25 Alkaline Phosphatase 76 Ammonia 33 Total Protein 6.9 Albumin 4.4 Valproic Acid 31.3 L Medications Medications Current Medications Acetaminophen (Acetaminophen 325 Mg Tablet) 650 mg PO Q6H PRN PRN Reason: Headache/Pain, Scale 1-10 Last Admin: 10/17/24 07:47 Dose: 650 mg Al Hydroxide/Mg Hydroxide (Magnesium Hydrox/Alum Hydrox 30 Ml Oral.Susp) 30 ml PO Q6H PRN PRN Reason: Heartburn/Nausea Last Admin: 10/15/24 11:40 Dose: 30 ml Aripiprazole (Aripiprazole 10 Mg Tablet) 10 mg PO BEDTIME TICO Last Admin: 10/16/24 21:11 Dose: 10 mg Divalproex Sodium (Divalproex Sodium Er 500 Mg Tab.Er.24h) 1,500 mg PO BEDTIME TICO Last Admin: 10/16/24 21:11 Dose: 1,500 mg Doxycycline Monohydrate (Doxycycline Monohydrate 100 Mg Capsule) 100 mg PO Q12H TICO Stop: 10/21/24 21:01 Last Admin: 10/17/24 08:21 Dose: 100 mg Fluticasone Propionate (Fluticasone Propionate Nasal 16 Gm [place]) 1 spray NOSTRIL-B DAILY TICO Last Admin: 10/17/24 08:22 Dose: 1 spray Guaifenesin (Guaifenesin 200 Mg/10 Ml 10 Ml Liquid) 10 ml PO Q4H PRN PRN Reason: Cough/congestion Last Admin: 10/17/24 07:47 Dose: 10 ml Hydroxyzine HCl (Hydroxyzine Hcl 50 Mg Tablet) 50 mg PO Q6H PRN PRN Reason: mild anxiety Ibuprofen (Ibuprofen 600 Mg Tablet) 600 mg PO Q8H PRN PRN Reason: Pain, Moderate(Pain Scale 4-6) Last Admin: 10/13/24 16:50 Dose: 600 mg Magnesium Hydroxide (Milk Of Magnesia 30 Ml Oral.Susp) 30 ml PO DAILY PRN PRN Reason: Constipation Mupirocin (Mupirocin 2 % Oint 22 Gm Tube) 1 appl TOPICAL TID TICO; Protocol Stop: 10/18/24 14:59 Last Admin: 10/17/24 08:23 Dose: 1 appl Nicotine (Nicotine 21 Mg Patch.Td24) 21 mg TRANSDERMA DAILY PRN PRN Reason: nicotine craving Nicotine Polacrilex (Nicotine Polacrilex 2 Mg Gum) 2 mg BUCCAL Q2H PRN PRN Reason: Nicotine Cravings Last Admin: 10/17/24 08:21 Dose: 2 mg Quetiapine Fumarate (Quetiapine Fumarate 50 Mg Tablet) 50 mg PO BID PRN PRN Reason: Agitation/psychosis Trazodone HCl (Trazodone Hcl 50 Mg Tablet) 50 mg PO BEDTIME MRX1 PRN PRN Reason: Insomnia Last Admin: 10/16/24 21:52 Dose: 50 mg Vitamin A/Vitamin D (A And D Ointment 56.7 Gm Tube) 1 appl TOPICAL TID TICO; Protocol Last Admin: 10/17/24 08:23 Dose: 1 appl Allergies Allergies Allergy/AdvReac Type Severity Reaction Status Date / Time bacitracin (From Neosporin Allergy Hives Verified 10/12/24 15:56 ([id number])) droperidol Allergy Difficulty Verified 10/13/24 12:42 Swallowing haloperidol Allergy Difficulty Verified 10/13/24 12:42 Swallowing lactose Allergy Unknown Verified 10/14/24 12:15 latex Allergy Hives Verified 10/12/24 15:56 neomycin (From Neosporin Allergy Hives Verified 10/12/24 15:56 ([id number])) Penicillins (PCN) Allergy Hives Verified 10/12/24 15:56 polymyxin B (From Neosporin Allergy Hives Verified 10/12/24 15:56 ([id number])) Assessment & Plan Assessment & Plan (1) Bipolar disorder: Status: Acute Code(s): F31.9 - Bipolar disorder, unspecified Plan Plan Patient on 15 minute checks for safety. Admitted to [facility]. CV. Work with treatment team to do collateral and outpatient psychiatric services for aftercare. Contact the hospitalist regarding hospitalist consultation on admission: Pending 10/12: Patient agreed to start Abilify. Reports Abilify was not working well by his self and he is not taking with the Depakote for mood stabilizer before. However agreed to restart both of them for his mood. Explained the blood work needed during to get therapeutic dose. Depakote 500 once at bedtime tonight. If tolerate well, and increased up to 500 twice a day the next day Abilify 5 mg at bedtime for mood/psychosis. (history of Abilify [place]). Currently he only wants p.o.. BuSpar 15 mg b.i.d. for anxiety. In the meantime we will started Seroquel 50 mg b.i.d. p.r.n. for severe agitation/or psychosis. Flonase wants today for congestion. Mucinex 600 b.i.d. for cough. He also has Robitussin b.i.d. p.r.n. for congestion/cough 10/13: Active on unit. attending groups .medication compliant. Patient reports feeling tired today d/t not being able to sleep through the night. Patient reports hx of taking depakote and abilify being beneficial. Depakote increased to Depakote ER 1000mg PO bedtime; pt aware. denies SI/HI/VH/AH. Continue current tx plan. 10/14: Active on unit. attending groups. Patient reports he is starting to feel more balanced today; pt stated, I feel like I'm starting to feel more like myself . Pt is requesting to DC Buspar; believes it is making him tired. DC Buspar. Valproic acid level to be drawn on 10/16/24. denies SI/HI/VH/AH. Continue current tx plan. 10/15: Continue current regimen and plans 10/16: Continue current plans and regimen. Nicotine patch 21 mg ordered 10/17: Active on unit. social with peers. attending groups. medication compliant. Patient reports feeling better ; pt stated, I feel like I'm starting to get to my baseline . denies SI/HI/AH/VH. He reports sleeping well. Valproic acid level to be drawn on 10/19/24; pt aware. Continue current tx plan. Patient educated on: diagnosis, medication risk/benefits and therapeutic strategies Reason for continued inpatient stay Substantial Risk for: med/psych decompensation Time Spent With Patient Time: Total time managing care of this patient today _20___ minutes.
[2024-10-17] MEDS: Nicotine 21 MG PATCH.TD24 TRANSDERMA (09:07)
--- NOTE | 2024-10-17 13:21 | PM.EVENT ---
Event Note Date of Service: 10/17/24 Event Note: Patient recently started on antibiotics for a tattoo air on his right lower leg for tiny pustules that were present. Patient now reporting that he has not area on his left pinky that was possibly a ingrown hair which she squeezed, now areas red, no pain, no fever. Doxycycline is appropriate antibiotic. Apply bacitracin TID prn until resolved. If area actively begins draining pus may culture area. Nursing encouraging patient to avoid squeezing in picking at areas on his skin. Time Spent With Patient Time: Total time managing care of this patient today ____ minutes.
[2024-10-17 20:41] VITALS: BP 138/76; PULSE 81; RESP 16; TEMP 36.4; O2SAT 97
--- NOTE | 2024-10-17 21:06 | PC.NURSE ---
Patient requested Tylenol for a headache and finger Pain. Nurse gave 5 minutes early as patient was taking his HS medications at the same time.
[2024-10-18] MEDS: Nicotine 21 MG PATCH.TD24 TRANSDERMA (06:18)
[2024-10-18] MEDS: guaiFENesin 200 MG/10 ML 10 ML LIQUID PO (06:18)
[2024-10-18 07:40] VITALS: BP 119/79; PULSE 77; RESP 20; TEMP 36.4; O2SAT 99
[2024-10-18] MEDS: A and D Ointment 56.7 GM TUBE 1 APPL TOPICAL (08:28)
--- NOTE | 2024-10-18 09:31 | P.PNPSI_ITS ---
Subjective Subjective Reason For Visit: F25.0 Diagnostics Vital Signs (24Hr): Vital Signs - 24 hr 10/17/24 20:41 10/18/24 07:40 Temperature 97.5 F 97.5 F Pulse Rate 81 77 Respiratory Rate 16 20 Blood Pressure 138/76 119/79 Pulse Oximetry 97 99 Oxygen Delivery Method Room Air Room Air BMI result Body Mass Index 24.9 Labs 10/13/24 07:59 Medications Medications Current Medications Acetaminophen (Acetaminophen 325 Mg Tablet) 650 mg PO Q6H PRN PRN Reason: Headache/Pain, Scale 1-10 Last Admin: 10/18/24 05:43 Dose: 650 mg Al Hydroxide/Mg Hydroxide (Magnesium Hydrox/Alum Hydrox 30 Ml Oral.Susp) 30 ml PO Q6H PRN PRN Reason: Heartburn/Nausea Last Admin: 10/15/24 11:40 Dose: 30 ml Aripiprazole (Aripiprazole 10 Mg Tablet) 10 mg PO BEDTIME TICO Last Admin: 10/17/24 20:56 Dose: 10 mg Divalproex Sodium (Divalproex Sodium Er 500 Mg Tab.Er.24h) 1,500 mg PO BEDTIME [facility] Last Admin: 10/17/24 20:56 Dose: 1,500 mg Doxycycline Monohydrate (Doxycycline Monohydrate 100 Mg Capsule) 100 mg PO Q12H [facility] Stop: 10/21/24 21:01 Last Admin: 10/18/24 08:27 Dose: 100 mg Fluticasone Propionate (Fluticasone Propionate Nasal 16 Gm [place]) 1 spray NOSTRIL-B DAILY [facility] Last Admin: 10/18/24 08:27 Dose: 1 spray Guaifenesin (Guaifenesin 200 Mg/10 Ml 10 Ml Liquid) 10 ml PO Q4H PRN PRN Reason: Cough/congestion Last Admin: 10/18/24 06:18 Dose: 10 ml Hydroxyzine HCl (Hydroxyzine Hcl 50 Mg Tablet) 50 mg PO Q6H PRN PRN Reason: mild anxiety Ibuprofen (Ibuprofen 600 Mg Tablet) 600 mg PO Q8H PRN PRN Reason: Pain, Moderate(Pain Scale 4-6) Last Admin: 10/13/24 16:50 Dose: 600 mg Magnesium Hydroxide (Milk Of Magnesia 30 Ml Oral.Susp) 30 ml PO DAILY PRN PRN Reason: Constipation Mupirocin (Mupirocin 2 % Oint 22 Gm Tube) 1 appl TOPICAL TID TICO; Protocol Stop: 10/18/24 14:59 Last Admin: 10/18/24 08:30 Dose: 1 appl Mupirocin (Mupirocin 2 % Oint 22 Gm Tube) 1 appl TOPICAL TID TICO; Protocol Stop: 10/22/24 14:59 Last Admin: 10/18/24 08:29 Dose: 1 appl Nicotine (Nicotine 21 Mg Patch.Td24) 21 mg TRANSDERMA DAILY PRN PRN Reason: nicotine craving Last Admin: 10/18/24 06:18 Dose: 21 mg Nicotine Polacrilex (Nicotine Polacrilex 2 Mg Gum) 2 mg BUCCAL Q2H PRN PRN Reason: Nicotine Cravings Last Admin: 10/18/24 08:32 Dose: 2 mg Quetiapine Fumarate (Quetiapine Fumarate 50 Mg Tablet) 50 mg PO BID PRN PRN Reason: Agitation/psychosis Trazodone HCl (Trazodone Hcl 50 Mg Tablet) 50 mg PO BEDTIME MRX1 PRN PRN Reason: Insomnia Last Admin: 10/17/24 21:37 Dose: 50 mg Vitamin A/Vitamin D (A And D Ointment 56.7 Gm Tube) 1 appl TOPICAL TID TICO; Protocol Last Admin: 10/18/24 08:28 Dose: 1 appl Allergies Allergies Allergy/AdvReac Type Severity Reaction Status Date / Time bacitracin (From Neosporin Allergy Hives Verified 10/12/24 15:56 ([id number])) droperidol Allergy Difficulty Verified 10/13/24 12:42 Swallowing haloperidol Allergy Difficulty Verified 10/13/24 12:42 Swallowing lactose Allergy Unknown Verified 10/14/24 12:15 latex Allergy Hives Verified 10/12/24 15:56 neomycin (From Neosporin Allergy Hives Verified 10/12/24 15:56 ([id number])) Penicillins (PCN) Allergy Hives Verified 10/12/24 15:56 polymyxin B (From Neosporin Allergy Hives Verified 10/12/24 15:56 ([id number])) Assessment & Plan Assessment & Plan (1) Bipolar disorder: Status: Acute Code(s): F31.9 - Bipolar disorder, unspecified Plan Plan Patient on 15 minute checks for safety. Admitted to . . Work with treatment team to do collateral and outpatient psychiatric services for aftercare. Contact the hospitalist regarding hospitalist consultation on admission: Pending 10/12: Patient agreed to start Abilify. Reports Abilify was not working well by his self and he is not taking with the Depakote for mood stabilizer before. However agreed to restart both of them for his mood. Explained the blood work needed during to get therapeutic dose. Depakote 500 once at bedtime tonight. If tolerate well, and increased up to 500 twice a day the next day Abilify 5 mg at bedtime for mood/psychosis. (history of Abilifmya [place]). Currently he only wants p.o.. BuSpar 15 mg b.i.d. for anxiety. In the meantime we will started Seroquel 50 mg b.i.d. p.r.n. for severe agitation/or psychosis. Flonase wants today for congestion. Mucinex 600 b.i.d. for cough. He also has Robitussin b.i.d. p.r.n. for congestion/cough 10/13: Active on unit. attending groups .medication compliant. Patient reports feeling tired today d/t not being able to sleep through the night. Patient reports hx of taking depakote and abilify being beneficial. Depakote increased to Depakote ER 1000mg PO bedtime; pt aware. denies SI/HI/VH/AH. Continue current tx plan. 10/14: Active on unit. attending groups. Patient reports he is starting to feel more balanced today; pt stated, I feel like I'm starting to feel more like myself . Pt is requesting to DC Buspar; believes it is making him tired. DC Buspar. Valproic acid level to be drawn on 10/16/24. denies SI/HI/VH/AH. Continue current tx plan. 10/15: Continue current regimen and plans 10/16: Continue current plans and regimen. Nicotine patch 21 mg ordered 10/17: Active on unit. social with peers. attending groups. medication compliant. Patient reports feeling better ; pt stated, I feel like I'm starting to get to my baseline . denies SI/HI/AH/VH. He reports sleeping well. Valproic acid level to be drawn on 10/19/24; pt aware. Continue current tx plan. Time Spent With Patient Time: Total time managing care of this patient today ____ minutes.
[2024-10-18 11:53] LABS: Alanine Aminotransferase 25 U/L (0-40); Albumin Level 4.7 g/dL (3.5-5.0); Alkaline Phosphatase 80 U/L (39-117); Aspartate Amino Transferase 26 U/L (5-37); Total Protein 7.3 g/dL (6.5-8.0)
--- NOTE | 2024-10-18 13:16 | P.DS_ITS ---
DS: Providers Provider Date of Service: 10/18/24 Date of admission: 10/12/24 15:10 Date of discharge: 10/18/24 Primary care physician: Unknown Physician Admitting clinician: Veena Cantu Attending physician on admission: Vishal Cochran Consults: 10/12/24 15:59 Consult to Hospitalist Routine Comment: Consulting Provider: [facility] Hospitalists Reason For Exam: New external admit- Need H&P Attending physician on discharge: Vishal Cochran Discharging clinician: Gia Cline DS: Diagnosis Discharge Diagnosis (1) Bipolar disorder: Status: Acute DS: Medications Discharge Medications Home Medications: Previous Rx's ?Medication ?Instructions ?Recorded aripiprazole 10 mg tablet 10 mg PO BEDTIME 7 days #7 t abs 10/18/24 divalproex 500 mg tablet,extended 1,500 mg (3 x 500 mg ) PO BEDTIME 7 10/18/24 release 24 hr days #21 tabs doxycycline monohydrate 100 mg 100 mg PO Q12H 3 days # 6 caps 10/18/24 capsule mupirocin 2 % topical ointment 1 appl topical TID 7 da ys #15 grams 10/18/24 vitamins A and D-white 1 appl topical TID 7 days #1 5 grams 10/18/24 petrolatum-lanolin topical ointment (A and D (lanolin-petrolatum) topical ointment) Mental Status Exam Mental Status Exam Narrative: Pt is alert and oriented; behavior is cooperative and calm; dressed in casual attire; mood is described as good ; eye contact appropriate; Speech is normal rate, volume and not pressured; thought process is organized; Thought content is on discharge; denies SI/HI/VH/AH. Data Data Completed and Pending Completed studies during hospitalization [Text1]: 10/13/24 10/16/24 10/18/24 07:59 07:25 11:16 Hold Purple Top Sodium 137 Potassium 4.1 Chloride 104 Carbon Dioxide 28 Anion Gap 9 L BUN 11 Creatinine 0.87 Estim Creat Clear Calc 119.0 Estimated GFR > 60 Random Glucose 92 Estimat Average Glucose 103 Hemoglobin A1c % 5.2 Calcium 8.9 Total Bilirubin 0.3 0.6 0.5 Direct Bilirubin 0.2 0.2 AST 60 H 29 26 ALT 30 25 25 Alkaline Phosphatase 73 76 80 Ammonia 33 Pending Total Protein 6.6 6.9 7.3 Albumin 4.2 4.4 4.7 Triglycerides 158 H Cholesterol 116 LDL Cholesterol, Calc 45 HDL Cholesterol 40 L TSH 0.80 Free T4 1.16 Valproic Acid 31.3 L 31.9 L 10/18/24 11:33 Hold Purple Top SEE NOTE Sodium Potassium Chloride Carbon Dioxide Anion Gap BUN Creatinine Estim Creat Clear Calc Estimated GFR Random Glucose Estimat Average Glucose Hemoglobin A1c % Calcium Total Bilirubin Direct Bilirubin AST ALT Alkaline Phosphatase Ammonia Total Protein Albumin Triglycerides Cholesterol LDL Cholesterol, Calc HDL Cholesterol TSH Free T4 Valproic Acid DS: Summary Hospital Course Hospital Course: Per referral from [facility] ED, patient is a 39 years old male with history of schizoaffective disorder, bipolar disorder presenting with a concerns for infection of a new tattoo. Patient was agitated, verbally aggressive with staff as well as physically aggressive staff requests restraints. Of Benadryl Haldol and Ativan was given. Patient reported that he has had increased paranoia and anxiety, disclose suicidal ideation but did not specify a plan I do not know do it but I will do it, difficult time finishing sentences, talking rapidly about numerous things. Met with patient at 16:10 on October 12. CC suicidal thoughts . Reports everything is spiral up. Reported that he only slept for 20 hours total in last 30 days, increased agitation. He just moved from [place] with plan to to go to [place] as he has couple of friends there. However he has not make it yet to [place]. He was thought by [place] to have his tattoo done from a famous placed in [place] that he knows. Traveled by bus. The tattoo area does not seems having infection signs. Denies SI/SIB/HI/AVH. History of suicidal thoughts. History of cutting last cut was in 2018. Denies suicide attempts history. Mood is I am stable now. I am at baseline . Denies any trauma history. He confirms that he have bipolar. Plan Patient on 15 minute checks for safety. Admitted to M3. CV. Work with treatment team to do collateral and outpatient psychiatric services for aftercare. Contact the hospitalist regarding hospitalist consultation on admission: Pending Patient agreed to start Abilify. Reports Abilify was not working well by his self and he is not taking with the Depakote for mood stabilizer before. However agreed to restart both of them for his mood. Explained the blood work needed during to get therapeutic dose. Depakote 500 once at bedtime tonight. If tolerate well, and increased up to 500 twice a day the next day Abilify 5 mg at bedtime for mood/psychosis. (history of Abilify [place]). Currently he only wants p.o.. BuSpar 15 mg b.i.d. for anxiety. In the meantime we will started Seroquel 50 mg b.i.d. p.r.n. for severe agitation/or psychosis. Flonase wants today for congestion. Mucinex 600 b.i.d. for cough. He also has Robitussin b.i.d. p.r.n. for congestion/cough Active on unit. attending groups .medication compliant. Patient reports feeling tired today d/t not being able to sleep through the night. Patient reports hx of taking depakote and abilify being beneficial. Depakote increased to Depakote ER 1000mg PO bedtime; pt aware. denies SI/HI/VH/AH. Continue current tx plan. Active on unit. attending groups. Patient reports he is starting to feel more balanced today; pt stated, I feel like I'm starting to feel more like myself . Pt is requesting to DC Buspar; believes it is making him tired. DC Buspar. Valproic acid level to be drawn on 10/16/24. denies SI/HI/VH/AH. Continue current tx plan. Active on unit. social with peers. attending groups. medication compliant. Patient reports feeling better ; pt stated, I feel like I'm starting to get to my baseline . denies SI/HI/AH/VH. He reports sleeping well. Valproic acid level to be drawn on 10/19/24; pt aware. Continue current tx plan. Patient reports feeling good ; feels he is at his baseline. Social with peers. Future oriented. Requesting to be discharged today rather than , when his 3 day notice is up. Patient stated, I feel stable. I don't need to be in the hospital anymore. I plan on taking the train to [place] and I will go to walk in clinics there . denies SI/HI/VH/AH. Valproic acid level 31.9 on 10/18/24. Status at Discharge Cognitive/behavioral status at discharge: Patient has insight and demonstrates good judgment in terms of wanting to pursue treatment. Patient has a safety plan that includes presenting to the closest ER or calling 911 if feeling unsafe. Functional status at discharge: independent ambulation Overall status at discharge: patient is back to baseline Time Spent with Patient Time attestation: Total time managing care of this patient today _20___ minutes. Time spent: Less than 30 minutes Discharge Plan Discharge Anticipated Discharge Date/Time: 10/18/24 14:00 Patient Disposition: Home, Self-Care Discharge Diagnosis: Bipolar d/o Referrals: N walk in clinic [Other] - 1 Week Referral Note: Walk in hours are Thursday-Thursday 8am-8pm [facility] walk in clinic [Other] - 1 Week Referral Note: Walk in Hours are Thursday-Thursday 8am-8pm and Thursday and Thursday 9am-5pm. [facility] [Provider Group] - 1 Week Referral Note: 10-18-24 [facility] was added to patients chart. Please call [phone] to schedule your follow up appt within 7-10 days of discharge. No release or PCP on file. Discharge Medications: New doxycycline monohydrate 100 mg Capsule 100 mg PO Q12H 3 Days Qty: 6 0RF mupirocin 2 % Ointment 1 appl topical TID 7 Days Qty: 15 0RF Protocol: Apply to: Apply to: Right lower leg vits A and D-white pet-lanolin [A and D (lanolin-petrolatum)] Ointment 1 appl topical TID 7 Days Qty: 15 0RF Protocol: Apply to: Apply to: Right lower leg divalproex 500 mg Tablet Extended Release 24 Hr 1,500 mg PO BEDTIME 7 Days Qty: 21 0RF aripiprazole 10 mg Tablet 10 mg PO BEDTIME 7 Days Qty: 7 0RF Diet: Regular diet Activity on Discharge: As tolerated Stand Alone Forms: Patient Portal Discharge page Print Language: Kiswahili Care Plan Goals: Maintain mood and safe behaviors Take medications as prescribed Practice coping skills Continue with outpatient providers and reach out to them as needed Health Concerns: Mood stability and behaviors Plan of Treatment: Follow up with your PCP, psychiatric provider and other outpatient providers regarding above concerns Take medications as prescribed Assessment: Patient has insight and demonstrates good judgment in terms of wanting to pursue treatment. Patient has a safety plan that includes presenting to the closest ER or calling 911 if feeling unsafe.
[2024-10-18 13:36] LABS: Ammonia 47 umol/L (13-55)
== END 2024-10-18 14:37 | disposition home or self-care (01) | DRG 750 ==
PROVIDERS: Nurse Practitioner Psychiatric/Mental Health; Admitting Provider Psychiatry & Neurology Psychiatry; Responsible Provider Registered Nurse; Visit Provider Psychiatry & Neurology Psychiatry
DX: F25.9 Schizoaffective disorder, unspecified (principal); R45.851 Suicidal ideations; F17.210 Nicotine dependence, cigarettes, uncomplicated; L53.9 Erythematous condition, unspecified; Z71.6 Tobacco abuse counseling; Z91.52 Personal history of nonsuicidal self-harm; Z59.02 Unsheltered homelessness; Z79.899 Other long term (current) drug therapy
CPT/HCPCS: 36415; 80053; 80061; 80076; 80164; 82140; 83036; 84439; 84443

== ENCOUNTER → 2024-10-12 15:10 | Outpatient (BNV) | payer MEDICAID, SELFPAY | PROVIDERS: Admitting Provider Psychiatry & Neurology Psychiatry; Visit Provider Nurse Practitioner Psychiatric/Mental Health | DX: F25.9 Schizoaffective disorder, unspecified (principal); F31.9 Bipolar disorder, unspecified | CPT/HCPCS: 90792; 99232 ==

== ENCOUNTER → 2024-10-12 15:10 | Outpatient (BNV) | payer SELFPAY | PROVIDERS: Admitting Provider Psychiatry & Neurology Psychiatry; Responsible Provider Registered Nurse; Visit Provider Nurse Practitioner Family | DX: F31.9 Bipolar disorder, unspecified (principal) | CPT/HCPCS: 99221; 99499 ==